=== PATIENT | male | born 1935 | race Caucasian/White ===

== ENCOUNTER 2016-11-14 13:55 | Inpatient (IN) | payer MEDICARE ==
[~2016-11-14] VITALS: Ht 188 cm; Wt 76.9 kg
--- NOTE | ~2016-11-14 | DS ---
[place], [place] DISCHARGE SUMMARY NAME: MABEL BHATIA [facility] #: [id number] UNIT #: [id number] ROOM: 420 DOCTOR: REJI GUNTER MD BIRTHDATE: [birth year] DOS: 11/17/2016 DATE OF DISCHARGE: He is going to be discharged on 11/18/2016 to [facility]. He was admitted to the hospital on 11/15/2016. DIAGNOSES: 1. Metabolic encephalopathy, multifactorial. 2. Alzheimer dementia, late onset. 3. Frailty with falls with a laceration of the left forehead. 4. Failed modified barium swallow with high risk for aspiration. The patient's family has decided not to put a PEG tube, so oral feeds and pureed diet with honey-thickened liquids have been ordered. 5. Mixed hyperlipidemia. 6. History of polymyalgia rheumatica with temporal arteritis. The ESR was 50. I do not believe there is an reactivation in his underlying disease. DISCHARGE MEDICATIONS: The patient's medications on discharge will be Risperdal 0.5 twice daily, Cipro 500 mg twice daily, donepezil 10 mg daily, Namenda 10 b.i.d., lorazepam 0.5 q.6 hours p.r.n. for anxiety. HOSPITAL COURSE: The patient is 81-year-old. He is known to me from a previous admission. He was brought in to the Emergency Room on Sunday after a fall and had a laceration above his left eyebrow. Six sutures were placed. He was brought back in with increased confusion. His CT of the head and CT of the cervical spine was unremarkable except for age-related changes and small vessel ischemia. The patient had normal white cell count, normal lactic acid. Comprehensive did not show any electrolyte abnormalities. After admission, the patient was placed on a monitored floor. Initially, he has become quite agitated and seemed to be increasingly somnolent. He failed his modified barium swallow, and he was noted to have aspiration. They suggested that he be kept n.p.o. Discussed the condition with the patient's family, his mainly who understands and does not want a PEG tube placement. She is okay with pureed diet and honey-thickened liquids, which have been started. Due to his history of polymyalgia rheumatica, ESR was ordered. This has come back at 50, which is not extremely high to consider reactivation of his PMR. The patient is overall stable. During the night of 11/16/2016, he developed increased respiratory distress and thought he may have aspirated, but a chest x-ray showed no evidence of pneumonia. He has been placed; however, on p.o. antibiotics. He is overall stable and could go to the long term on Sunday morning. His prognosis is extremely poor and is a high risk for pneumonia. His code status is comfort care. [place], [place] DISCHARGE SUMMARY NAME: MABEL BHATIA UNIT #: [id number] ROOM: 420 DOCTOR: REJI GUNTER MD BIRTHDATE: [birth year] REJI GUNTER MD CM:DISCHARG [id number] REJI GUNTER MD 12/25/16 1200 interface
--- NOTE | ~2016-11-14 | PR ---
[place], [place] PROGRESS NOTE [id number] UN[facility] #: [id number] ROOM: 420 DOCTOR: REJI GUNTER MD BIRTHDATE: [birth year] DOS: 11/17/2016 SUBJECTIVE: The patient is little less agitated this morning. He had woken up multiple times during the night. OBJECTIVE: VITAL SIGNS: Blood pressure is 146/76, pulse of 80, respirations 18, temperature 98.6. LUNGS: Diminished breath sounds, scattered wheezes. HEART: Regular. ABDOMEN: Soft. EXTREMITIES: Without any edema. LABORATORY DATA: Chest x-ray shows hperaerated lungs without active pulmonary disease. ASSESSMENT AND PLAN: 1. Encephalopathy, multifactorial, combination of Alzheimer dementia, late onset with a recent fall and possible postconcussion syndrome. 2. Failed modified barium swallow. The family does not want to put a PEG tube feeding, pressure feeds and pureed diet with honey-thickened liquids have been started. 3. Frailty with falls with adult failure to thrive. The patient to go [facility] tomorrow. I will start the discharge plan today. REJI GUNTER MD CM:PNTRANS [id number] REJI GUNTER MD 12/25/16 1204 interface
--- NOTE | ~2016-11-14 | WRIGHTHP ---
[place], [place] PATIENT HISTORY AND PHYSICAL EXAM NAME: MABEL BHATIA [facility] #: [id number] UNIT #: [id number] ROOM: 420 DOCTOR: REJI GUNTER MD BIRTHDATE: [birth year] DOS: 11/15/2016 HISTORY OF PRESENT ILLNESS: The patient is 81 years old, I have known him from a previous admission, patient of Dr. Mi, had a fall on Sunday, hit his head, had a laceration, had 6 sutures placed in the ER, and after that happened, he has not really gotten out of his chair, is sitting and his has a hard time getting him up. The family has decided that he would be placed. They already reviewed a couple of nursing homes and would like placed in [place]. He denies having any chest pains or palpitations. He does not have any fever, any chills, any abdominal pain, nausea, any emesis. PAST MEDICAL HISTORY: Significant for; 1. Last hospitalization in March 2016 with bilateral pneumonia. 2. Adult failure to thrive. 3. Alzheimer's, late onset. 4. Delirium. 5. Mixed hyperlipidemia. 6. History of polymyalgia rheumatica. 7. History of temporal arteritis. MEDICATIONS: He was on donepezil, Risperdal and Ativan. SOCIAL HISTORY: Nonsmoker. PHYSICAL EXAMINATION: GENERAL: He is awake, but not quite sedated this morning. As per the nursing staff, he was quite agitated and abusive, yelling and screaming earlier this morning. HEENT: Six sutures above the left eyebrow. VITAL SIGNS: Graphic trend shows a pressure of 154/65, pulse of 88, respirations 24, temperature 95.0. LUNGS: Diminished breath sounds. No wheezes, rales or rhonchi heard. HEART: Regular. ABDOMEN: Obese, soft, nontender. EXTREMITIES: Without any edema. ASSESSMENT AND PLAN: 1. Fall with laceration of the forehead. 2. Encephalopathy with delirium from underlying Alzheimer dementia, for placement. Social service and Physical Therapy, Occupational Therapy have been consulted. 3. History of polymyalgia rheumatica. Go ahead and arrange for an ESR to make sure that is not elevated. 4. Frailty with falls. Physical Therapy will help this patient. He may have a postconcussion syndrome, which may resolve with time. [place], [place] PATIENT HISTORY AND PHYSICAL EXAM NAME: MABEL BHATIA UNIT #: [id number] ROOM: 420 DOCTOR: REJI GUNTER MD BIRTHDATE: [birth year] REJI GUNTER MD CM:HISPHYS:PATIENT HISTORY AND PHYSICAL EXAMINATION [id number] REJI GUNTER MD 12/25/16 1203 interface
--- NOTE | ~2016-11-14 | PR ---
[place], [place] PROGRESS NOTE NAME: MABEL BHATIA [facility] #: [id number] UNIT #: [id number] ROOM: 420 DOCTOR: REJI GUNTER MD BIRTHDATE: [birth year] DOS: 11/15/2016 HISTORY OF PRESENT ILLNESS: The patient is 81 years old, I have known him from a previous admission, patient of Dr. Mi, had a fall on Sunday, hit his head, had a laceration, had 6 sutures placed in the ER, and after that happened, he has not really gotten out of his chair, is sitting and his has a hard time getting him up. The family has decided that he would be placed. They already reviewed a couple of nursing homes and would like placed in [place]. He denies having any chest pains or palpitations. He does not have any fever, any chills, any abdominal pain, nausea, any emesis. PAST MEDICAL HISTORY: Significant for; 1. Last hospitalization in March 2016 with bilateral pneumonia. 2. Adult failure to thrive. 3. Alzheimer's, late onset. 4. Delirium. 5. Mixed hyperlipidemia. 6. History of polymyalgia rheumatica. 7. History of temporal arteritis. MEDICATIONS: He was on donepezil, Risperdal and Ativan. SOCIAL HISTORY: Nonsmoker. PHYSICAL EXAMINATION: GENERAL: He is awake, but not sedated this morning. As per the nursing staff, he was quite agitated and abusive, yelling and screaming earlier this morning. HEENT: Six sutures above the left eyebrow. VITAL SIGNS: Graphic trend shows a pressure of 154/65, pulse of 88, respirations 24, temperature 95.0. LUNGS: Diminished breath sounds. No wheezes, rales or rhonchi heard. HEART: Regular. ABDOMEN: Obese, soft, nontender. EXTREMITIES: Without any edema. ASSESSMENT AND PLAN: 1. Fall with laceration of the forehead. 2. Encephalopathy with delirium from underlying Alzheimer dementia, for placement. Social service and Physical Therapy, Occupational Therapy have been consulted. 3. History of polymyalgia rheumatica. Go ahead and arrange for an ESR to make sure that is not elevated. 4. Frailty with falls. Physical Therapy will help this patient. He may have a postconcussion syndrome, which may resolve with time. [place], [place] PROGRESS NOTE NAME: MABEL BHATIA UNIT #: [id number] ROOM: 420 DOCTOR: REJI GUNTER MD BIRTHDATE: [birth year] REJI GUNTER MD CM:PNTRANS [id number] REJI GUNTER MD 11/17/16 0840 RONAK [facility]AMPO [facility].TM
--- NOTE | ~2016-11-14 | PROC NOTE ---
[place], [place] PROCEDURE NOTE NAME: [id number] UN[facility] #: [id number] ROOM: 420 DOCTOR: BROOKE EM BIRTHDATE: [birth year] DOS: 11/16/2016 MODIFIED BARIUM SWALLOW LOCATION: [facility], room 420, bed 1. DOCTOR: Dr. Summers. RADIOLOGIST: Dr. Lund. BACKGROUND INFORMATION: The patient is an 81-year-old male who was seen for modified barium swallow. This test was ordered to rule out aspiration. The patient has been choking on liquids. The patient was admitted after suffering a fall and hitting his head. Medical history significant for dementia, deconditioning and failure to thrive. The patient has a history of pneumonia. For today's assessment, the patient was alert but noncompliant. He had difficulty following commands and yelled profanities throughout the procedure. The patient was agitated and encouragement in cues only further increased his agitation. He currently receives a regular diet and thin liquid. The patient was not receiving oxygen during today's study. Oral peripheral examination was unable to be accomplished due to the patient's behavior. METHODS AND MATERIALS USED FOR THE EXAM: The patient was positioned in the lateral plane and examination was viewed under fluoroscopy. The patient was presented with applesauce mixed with barium presented in quarter teaspoon amounts, soft solid which consisted of bite size pieces of barium-coated pears. He was also presented with nectar-thick liquid, which he consumed independently by cup. Throughout the evaluation the patient would vocalize prior to the swallow. He was also frequently moving in his seat making it difficult to visualize. As previously mentioned cues given only increased his agitation. ORAL PHASE: The patient achieved adequate labial seal around cup and spoon with no anterior loss. Bolus formation and transit were adequate. Tongue to palate contact was adequate. Tongue to posterior pharyngeal wall contact was moderately impaired. Velar functioning was within normal limits with no nasal regurgitation. PHARYNGEAL PHASE: The pharyngeal swallow occurred within a timely manner. Reduced laryngeal elevation and epiglottic function were noted. Aspiration occurred during the swallow with soft solid and nectar thick liquid. Coughing was observed. Pooling in the vallecula was displayed mildly with puree and moderate to severely with solid, this residue worsened. With continued presentations, he also exhibited piriform residue as well. The patient did not appear aware of the residue as he made no attempt to clear it. Various strategies to increase safety were unable to be accomplished due to his behavior. ESOPHAGEAL PHASE: This phase of the swallow was not formally assessed during this examination. [place], [place] PROCEDURE NOTE NAME: MABEL BHATIA UNIT #: [id number] ROOM: 420 DOCTOR: BROOKE EM BIRTHDATE: [birth year] IMPRESSIONS AND RECOMMENDATIONS: This 81-year-old patient presented with significant agitation and difficulty following commands throughout the study. He displayed significant residue throughout the pharynx post-swallow with all consistencies, which he was unaware of, and unable to clear. Aspiration occurred during the swallow with soft solid and nectar-thick liquid. Strategies were unable to be attempted due to his behavior. The patient's daughter remained with him during the procedure. She stated that tube feeding is not an option for this patient, they would like him to remain on oral feeding. The patient's daughter was in agreement with pureed diet and honey-thick liquid and demonstrated awareness of the risks. The patient did aspirate during the study and it is suspected that continued aspiration will present as he continues to eat. Recommend safety strategies such as upright positioning for meals, small bites and sips and monitoring for signs and symptoms of aspiration and discontinuing p.o. intake if these sounds are displayed. The patient's nurse was also informed of results and recommendations and verbalized understanding. Followup therapy is recommended focusing on education to improve safety. Thank you very much for this referral. Should you have any questions regarding this patient, please contact the speech pathologist at [phone]. BROOKE EM CM:PROCNOTE:PROCEDURE NOTE 0940 BROOKE EM
--- NOTE | ~2016-11-14 | PR ---
[place], [place] PROGRESS NOTE NAME: MABEL BHATIA UNIT #: [id number] ROOM: [facility] DOCTOR: REJI GUNTER MD BIRTHDATE: [birth year] DOS: SUBJECTIVE: The patient is quite agitated this morning. He was having a hard time swallowing yesterday and a speech study was performed emergently. Speech study showed that he was high risk for aspiration and the suggestion was to keep him n.p.o. As per the family's request, the patient was started on pureed diet and honey thick liquid and they were aware of the high risk for aspiration. Early this morning, the patient aspirated and has been quite rattling since then. This morning, he is short of breath, seems to be quite anxious and agitated. OBJECTIVE: VITAL SIGNS: Blood pressure is 154/74, pulse of 95, respirations 20, temperature 99.3. LUNGS: Diminished breath sounds, some scattered wheezes and rhonchi. HEART: Regular. ABDOMEN: Soft, scaphoid. EXTREMITIES: Without any edema. Again, barium swallow showing stasis in the vallecula and pyriform sinuses with aspiration. LABORATORY DATA: Urine shows positive ketone and 2+ urobilinogen. Chest x-ray this morning is not available yet. ASSESSMENT AND PLAN: 1. An 81-year-old who comes in with encephalopathy from its multifactorial. The patient does have underlying Alzheimer dementia late onset with delirium. Risperdal has been ordered. The patient's family does not want to give him anything with side effect, they agreed on giving Ativan and Risperdal. Social Service has been consulted for placement to an Alzheimer's unit. 2. High risk for aspiration. The patient really should be n.p.o., but with his quality of life being poor, I agree with the family to just keep him on a pureed diet and tube feeding to be placed. Discussed with the patient's in detail this morning. 3. Recent fall with laceration and sutures above his left eyebrow will be removed at a later date, they were just placed on Sunday, so await for another 3 days before the sutures removed. [place], [place] PROGRESS NOTE NAME: MABEL BHATIA UNIT #: [id number] ROOM: 420 DOCTOR: REJI GUNTER MD BIRTHDATE: [birth year] REJI GUNTER MD CM:PNTRANS 0819 [id number] REJI GUNTER MD 11/16/16 1240 interface
[2016-11-14 13:55] VITALS: BP 120/70
[~2016-11-14 13:55] MED LIST: ARICEPT10 MG PO; ASPIRIN81 M1 PO; CENTRUM1 TAB PO; NAMENDA10 MG PO; RISPERDAL0.5 MG PO; STERAPRED DS10 MG PO; VITAMIN D1000 IU PO
[2016-11-14 15:00] LABS: BASO % 0.4 % (0.0-1.0); EOS # 0.2 10*3/uL (0.0-0.4); EOS % 2.5 % (1.0-4.0); HEMATOCRIT 35.2 % (42.0-52.0); HEMOGLOBIN 10.6 g/dl (14.0-18.0); MEAN CELL VOLUME 86.3 fl (80.0-94.0); MEAN CORPUSCULAR HGB CONC 30.1 g/dl (33.0-37.0); MEAN PLATELET VOLUME 8.7 fl (9.6-12.3); MONO % 12.6 % (3.0-9.0); NEUT # 5.7 10*3/uL (2.3-7.9); NEUT % 71.1 % (47.0-73.0); PLATELET COUNT AUTOMATED 289 10*3/uL (130-400); RED BLOOD COUNT 4.08 10*6/uL (4.50-5.90); RED CELL DISTRI WIDTH 13.6 % (0-14.5)
[2016-11-14 15:01] VITALS: BP 150/98
[2016-11-14 15:15] LABS: PROTHROMBIN TIME 11.1 SECONDS (9.0-12.4)
[2016-11-14 15:19] LABS: ALBUMIN 2.7 gm/dl (3.1-4.5); ALKALINE PHOSPHATASE 95 U/L (45-117); BILIRUBIN, TOTAL 0.5 mg/dl (0.2-1.0); BUN 25 mg/dl (7-24); CARBON DIOXIDE 29 mmol/L (21-32); CHLORIDE 100 mmol/L (98-107); CKMB 2.6 ng/ml (0.5-3.6); EST GLOM FILT AFRICAN AMERICAN > 60 ml/min; GLUCOSE 109 mg/dL (65-99); MAGNESIUM 2.2 mg/dL (1.5-2.1); POTASSIUM 4.2 mmol/L (3.5-5.1); SGOT/AST 25 IU/L (3-35); SGPT/ALT 26 U/L (12-78); SODIUM 141 mmol/L (136-145); TOTAL PROTEIN 6.8 gm/dL (6.4-8.2)
[2016-11-14 18:00] VITALS: BP 154/65
[2016-11-14] MEDS ORDERED: ATIVAN0.5 MG PO (18:52)
[2016-11-14 20:00] VITALS: BP 142/74
[2016-11-15] VITALS: BP 143/96
[2016-11-15 08:05] VITALS: BP 131/64
[2016-11-15 11:48] VITALS: BP 116/59
[2016-11-15 15:21] LABS: BILIRUBIN NEGATIVE (NEGATIVE); BLOOD NEGATIVE (NEGATIVE); CLARITY CLEAR (CLEAR); COLOR YELLOW (YELLOW); GLUCOSE NEGATIVE (NEGATIVE); KETONE 1+ (NEGATIVE); LEUKO ESTERASE NEGATIVE (NEGATIVE); NITRITE NEGATIVE (NEGATIVE); PROTEIN NEGATIVE (NEGATIVE)
[2016-11-15 16:04] LABS: MUCOUS TRACE; URINE REFLEX COMMENT NO (NO)
[2016-11-15 16:09] VITALS: BP 123/74
[2016-11-15 20:10] VITALS: BP 123/74
[2016-11-16] VITALS: BP 154/74
[2016-11-16 08:00] VITALS: BP 135/66
[2016-11-16 16:00] VITALS: BP 148/71
[2016-11-16 20:00] VITALS: BP 128/70
[2016-11-17] VITALS: BP 142/85
[2016-11-17 08:00] VITALS: BP 146/76
[2016-11-17] MEDS ORDERED: RISPERDAL0.5 MG PO (08:32)
[2016-11-17] MEDS ORDERED: CIPRO500 MG PO (08:32)
[2016-11-17 16:00] VITALS: BP 156/80
[2016-11-18] VITALS: BP 128/74
[2016-11-18 05:58] LABS: BUN 34 mg/dl (7-24); EST GLOM FILT AFRICAN AMERICAN > 60 ml/min
[2016-11-18 08:00] VITALS: BP 146/68
== END 2016-11-18 11:00 | disposition other institution (70) | DRG 56 ==
LOC: ED 13:55 → EDHOLD 17:04 → 4E 17:04
PROVIDERS: Internal Medicine; Nurse Practitioner Family
PROC: BD1BYZZ Fluoroscopy of Mouth/Oropharynx using Other Contrast (ICD-10-PCS; principal; 2016-11-16)
DX: G30.1 Alzheimer's disease with late onset (principal); G93.41 Metabolic encephalopathy; R54 Age-related physical debility; F05 Delirium due to known physiological condition; F02.80 Dementia in other diseases classified elsewhere, unspecified severity, without behavioral disturbance, psychotic disturbance, mood disturbance, and anxiety; E78.2 Mixed hyperlipidemia; R62.7 Adult failure to thrive